=== PATIENT | female | born 1955 | race Caucasian/White ===

== ENCOUNTER 2016-12-28 10:08 | Day surgery (SDC) | payer OTHER ==
[~2016-12-28] VITALS: Ht 152.4 cm; Wt 98.6 kg
[~2016-12-28 10:08] MED LIST: ATOR10TA65 PO; BENA20TA48 PO; OMEP10CA4 PO; PARO10TA76 PO; VIT D
[2016-12-28 10:59] VITALS: Ht 152.4 cm; Wt 98.6 kg
[2016-12-28] MEDS ORDERED: PARO10TA76 PO (11:06)
[2016-12-28] MEDS ORDERED: PROBIOTIC (11:06)
[2016-12-28] MEDS ORDERED: MAGNESIUM (11:06)
[2016-12-28 11:23] VITALS: BP 129/67; PULSE 71; RESP 18
[2016-12-28] MEDS ORDERED: PROPOFOL 40 ML ONE (11:27)
--- NOTE | 2016-12-28 18:35 | GILP ---
DATE OF PROCEDURE: NAME OF PROCEDURES: 1. Esophagogastroduodenoscopy and biopsy. 2. Colonoscopy. SURGEON: Conner Fuchs MD PREOPERATIVE DIAGNOSES: 1. Abdominal pain. 2. Screening colonoscopy. POSTOPERATIVE DIAGNOSES: 1. Gastritis with erosions. 2. Gastric mucosal biopsies were taken for Helicobacter pylori test. 3. Colonoscopy all the way to the cecum. 4. Poor prep, especially in the right colon and the cecal area, making the exam suboptimal. 5. Diverticulosis of the colon. 6. Internal hemorrhoids. 7. No gross neoplasm was identified. INDICATION FOR THE PROCEDURE: Ms. Amber Barraza is a 61-year-old female patient who had upper abdo jamie pain, not responding to therapy. She also needed screening colonoscopy. The procedures and possible complications were well explained to the patient. She understood and co nsented to the procedure. DESCRIPTION OF PROCEDURE: Under the influence of anesthesia, the gastroscope was carefully introduc ed into the esophagus and, under direct vision, it was advanced to the stomach and through the pylor us into the duodenal bulb and descending duodenum. FINDINGS: ESOPHAGUS: Mucosa was normal. STOMACH: The patient had gastritis with erosions. Gastric mucosal biopsies were taken for H. pylor i test. DUODENUM: Normal. The colonoscope was carefully introduced in the rectum, and under direct vision, it was advanced all the way to the cecum. FINDINGS: The patient had poor prep, especially in the right colon and cecal area making the exam s omewhat suboptimal. She was noted to have diverticulosis of the colon and internal hemorrhoids. No gross neoplasm was identified. She tolerated the procedures very well and there was no complication from the procedures. At the en d of the procedures, she was awake with stable vital signs and [facility] IMPRESSION: 1. Gastritis with erosions. 2. Gastric mucosal biopsies were taken for Helicobacter pylori test. 3. Colonoscopy all the way to the cecum. 4. Poor prep, especially in the right colon and the cecal area, making the exam suboptimal. 5. Diverticulosis of the colon. 6. Internal hemorrhoids. 7. No gross neoplasm was identified. PLAN: 1. Omeprazole 40 mg p.o. q.a.m. 2. Zantac 300 mg p.o. at bedtime. 3. Await H. pylori test report. 4. High fiber diet. 5. Because of the poor prep and suboptimal nature of examination, we recommend next screening colon oscopy with better preparation in 2 years. Dictated By: CONNER JONES/LOUISE Conf#: [id number] DID#: [id number] CC: CONNER FUCHS MD;*EndCC*
== END 2016-12-28 16:05 | disposition home or self-care (01) ==
LOC: GIL 10:08
PROVIDERS: ATTEND Internal Medicine Gastroenterology
DX: Z12.11 Encounter for screening for malignant neoplasm of colon (principal); K29.60 Other gastritis without bleeding; K57.90 Diverticulosis of intestine, part unspecified, without perforation or abscess without bleeding; K64.8 Other hemorrhoids; I10 Essential (primary) hypertension; E66.9 Obesity, unspecified; Z68.41 Body mass index [BMI] 40.0-44.9, adult
CPT/HCPCS: 43239; 45378; 87081; Z7610